=== PATIENT | male | born 1950 | race Caucasian/White ===

== ENCOUNTER → 2017-04-05 | Outpatient (CLI) | payer OTHER ==
[~2017-04-05] MED LIST: BENA40TA PO; BUTA1CAP PO; DILA8TAB4 PO; IBUP200C PO; IOHEXOL 350 MG/ML 10 ML VIAL (for RAD DIAG) IV ONE; LEVO175T2 PO; OXYC1TAB36 PO; PARO20TA2 PO; PARO40TA2 PO; SYNT175T PO; TAMS5CAP PO; ZOFR4TAB PO; ZYPR20TA PO
--- NOTE | 2017-04-05 15:05 | RADRPT ---
EXAM DATE/TIME: 04/05/2017 13:52 [place] COMPARISON: CT ABDOMEN & PELVIS W/O CONTRAST, May 02, 2015, 15:33. INDICATIONS : Gross hematuria. IV CONTRAST: 74 cc Omnipaque 350 (iohexol) IV ORAL CONTRAST: No oral contrast ingested. RADIATION DOSE: 11.29 CTDIvol (mGy) MEDICAL HISTORY : Carcinoma, colon. Renal calculi. Thyroid and throat cancer, Colon cancer. SURGICAL HISTORY : Cholecystectomy. Colon resection. ENCOUNTER: Initial ACUITY: 1 day PAIN SCALE: 0/10 LOCATION: Bilateral abdomen TECHNIQUE: Volumetric scanning of the abdomen and pelvis was performed. Using automated exposure control and ad justment of the mA and/or kV according to patient size, radiation dose was kept as low as reasonably achievable to obtain optimal diagnostic quality images. DICOM format image data is available electro nically for review and comparison. FINDINGS: There is a persistent ventral abdominal wall hernia to the right of midline which contains only fat. There is also a stable cystic lesion immediately deep to the left rectus musculature measuring 4.4 x 6.7 x 5.0 cm which is stable and likely benign. Uncomplicated complicated colonic diverticulosis is noted. Multiple stable low density lesions are noted throughout the liver parenchyma consistent with probable cysts. The largest measures 2.6 cm in the right lobe. No biliary ductal dilatation is not ed. The patient is status post cholecystectomy. The spleen is normal. The pancreas is also normal. 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 No acute obstructive uropathy is noted . No solid renal mass is noted. No calcified renal calculus is noted. The adrenal glands are radha l bilaterally. The abdominal aorta and inferior vena cava are unremarkable. There is no paraaortic, retroperitoneal or mesenteric lymphadenopathy. The urinary bladder is unremarkable. The prostate gl and is mildly prominent. No pelvic lymphadenopathy is noted. Small inguinal hernias containing only fat are stable. Degenerative changes are noted throughout the lumbar and lower thoracic spine. A s mall hiatal hernia is noted. CONCLUSION: 1. No acute obstructive uropathy. 2. Uncomplicated colonic diverticulosis. 3. Stable multiple hepatic cysts. 4. Stable ventral abdominal wall hernia to the right of midline containing only fat. 5. Stable anterior peritoneal cystic lesion deep to the left rectus muscle measuring 6.7 x 2.9 x 5.0 cm which is likely benign. 6. Small hiatal hernia. 7. Mildly prominent prostate. 8. Tiny bilateral inguinal hernias containing only fat. 9. Degenerative changes throughout the lumbar and lower thoracic spine. Lalito Johnson MD on April 05, 2017 at 14:39 Board Certified Radiologist. This report was verified electronically.
== END ==
LOC: HRAD 12:04
PROVIDERS: ATTEND Urology
DX: R31.0 Gross hematuria (principal)
CPT/HCPCS: 74178; Q9967